=== PATIENT | male | born 1990 | race Two or more races ===

== ENCOUNTER 2022-11-22 18:55 | Emergency (ER) | payer SELFPAY ==
[~2022-11-22] VITALS: Ht 165.1 cm; Wt 90.7 kg
[2022-11-22 20:00] VITALS: BP 130/65
--- NOTE | 2022-11-22 20:58 | NUR ---
Patient eloped from facility. ER MD notified.
== END 2022-11-23 01:07 | disposition left against medical advice (07) ==
LOC: ER 18:57
DX: F10.129 Alcohol abuse with intoxication, unspecified (principal); Y90.9 Presence of alcohol in blood, level not specified